=== PATIENT | female | born 1945 | race Caucasian/White ===

== ENCOUNTER 2016-12-21 14:36 | Day surgery (SDC) | payer MEDICARE ==
[~2016-12-21 14:36] MED LIST: ALBU8.5H4 IH; ASCO500T7 PO; CARB1TAB36 PO; CETI-188 PO; CHOL400C9 PO; ENTA200T6 PO; GABA600T2 PO; GLUC1CAP35 PO; HYDR-4003 PO; NPR500T PO; OMEG500C3 PO; PYRI200T4 PO; PYRI50CA PO; TRAM50TA2 PO; UBID1CAP52 PO
[2016-12-21] MEDS ORDERED: Lidocaine PF 1% 5 mL Inj ONE (14:37)
[2016-12-21] MEDS ORDERED: Iohexol 240 mg/mL 10 mL Inj ONE (14:37)
[2016-12-21] MEDS ORDERED: MethylprednisoLONE Depot 80 mg/mL Inj ONE (14:37)
[2016-12-21 14:59] VITALS: BP 149/95; PULSE 95; RESP 20; O2SAT 95
--- NOTE | 2016-12-21 16:56 | PCM.PROC ---
Procedure Note Date of Service: Dec 21, 2016 Pre Procedure Diagnosis: PROCEDURE: Lumbar Interlaminar epidural steroid injection. L2-L3. 1% lidocaine ASA / ANTI-COAGULATION . No asa x 7 days. PRE-PROCEDURE DIAGNOSIS: Low back pain/stenosis POST-PROCEDURE DIAGNOSIS: same INDICATION: 71-year-old female chronic low back pain suggestive of lumbar spinal stenosis PERFORMED BY: Yunior Ramírez MD DESCRIPTION OF PROCEDURE: Patient was met in the holding area. Consent was signed, site was confirmed and all questions were answered. Patient was taken to the procedure suite and placed prone on the procedure table.The appropriate time out in the OR was performed confirming the patient's name, date of , planned procedure, and presence of the appropriate instrumentation. Area was prepped and draped in sterile fashion. Local anesthesia with 1% lidocaine was injected. An 18-gauge Tuohy needle was advanced toward the interlaminar space using fluoroscopic guidance after optimizing the AP view. A loss of resistance syringe was attached as we approached the epidural space in the lateral view. After [id number] was obtained, radiopaque contrast was injected under live fluro which confirmed epidural placement without intravascular uptake. Then , 2 cc 1% lidocaine with 80 mg depomedrol was injected without difficulty. ANESTHESIA: Local. EBL: None. No Blood Products Used COMPLICATIONS: None SPECIMENS: None POST-PROCEDURE DISPOSITION: Patient was returned to the holding area in stable condition. They were discharged home when all discharge criteria were met. Evaluation/Physical Exam before discharge revealed: No anesthetic phase response , even with standing DISCHARGE MEDICATIONS: None FOLLOW UP: Return to clinic in 4 weeks Yunior Ramírez MD * Pain Management * Anesthesiology .ED: Y: Patient given care and follow up instructions Yunior Ramírez MD Dec 21, 2016 16:56
[2017-03-27] MEDS ORDERED: CARB1CAP PO (17:18)
[2017-03-27] MEDS ORDERED: MAGN100T5 PO (17:18)
[2017-03-27] MEDS ORDERED: PYR50 PO (17:18)
[2017-03-27] MEDS ORDERED: LVCR25100 PO (17:18)
[2017-03-27] MEDS ORDERED: CETI-343 PO (17:18)
[2017-03-27] MEDS ORDERED: CHOL400T PO (17:18)
[2017-03-27] MEDS ORDERED: ASCO500C6 PO (17:18)
[2017-03-27] MEDS ORDERED: GLUC-120 PO (17:18)
== END 2016-12-21 23:59 | disposition home or self-care (01) ==
LOC: END 14:36
PROVIDERS: ATTEND Anesthesiology Pain Medicine
DX: M48.06 Spinal stenosis, lumbar region (principal); G24.9 Dystonia, unspecified; M79.7 Fibromyalgia
CPT/HCPCS: 62323; J1040

== ENCOUNTER 2017-03-29 00:34 | Day surgery (SDC) | payer MEDICARE ==
[~2017-03-29 00:34] MED LIST changes: +ASCO500C6 PO; -ASCO500T7 PO; +CARB1CAP PO; -CETI-188 PO; +CETI-343 PO; -CHOL400C9 PO; +CHOL400T PO; -ENTA200T6 PO; +GLUC-120 PO; -GLUC1CAP35 PO; +LVCR25100 PO; +MAGN100T5 PO; +PYR50 PO; -PYRI50CA PO
--- NOTE | 2017-03-29 15:02 | PCM.PROC ---
Procedure Note Date of Service: March 29, 2017 Pre Procedure Diagnosis: No Show Date: 03/29/17 No Show For RIGHT L3-L4, L4-L5, L5-S1 medial branch block Yunior Ramírez MD * Pain Management * Anesthesiology CC: Yunior Ramírez MD March 29, 2017 15:02
== END 2017-03-29 23:59 | disposition home or self-care (01) ==
LOC: END 00:34
PROVIDERS: ATTEND Anesthesiology Pain Medicine
DX: M47.816 Spondylosis without myelopathy or radiculopathy, lumbar region (principal); Z53.20 Procedure and treatment not carried out because of patient's decision for unspecified reasons